=== PATIENT | male | born 1980 | race Caucasian/White ===

== ENCOUNTER 2024-06-26 13:26 | Emergency (ER) | payer SELFPAY ==
[~2024-06-26] VITALS: Ht 182.9 cm; Wt 108.9 kg
[2024-06-26] MEDS ORDERED: AMOCLA875 PO (13:56)
== END 2024-06-26 14:17 | disposition home or self-care (01) ==
LOC: EDBD 13:26 → ER 13:26
DX: K04.7 Periapical abscess without sinus (principal)
CPT/HCPCS: 41800; 99282-25